=== PATIENT | female | born 1945 | race Caucasian/White ===

== ENCOUNTER → 2019-06-29 15:14 | Outpatient (CLI) | payer OTHER, SELFPAY ==
--- NOTE | ~2019-06-29 | XR_ITS ---
EXAMINATION: XR shoulder RT min 2V DATE: 06/29/2019 15:28 INDICATION: Right shoulder pain. TECHNIQUE: 4 views of right shoulder were obtained. COMPARISON: Right shoulder radiographs 07/11/2014 FINDINGS: Bone alignment is normal. No fracture. There is mild osteoarthritis of glenohumeral joint a nd acromioclavicular joint. IMPRESSION: 1. Mild polyarticular osteoarthritis. Reviewed, dictated and finalized at location A. ICAL SECURITY MANAGER
== END ==
PROVIDERS: PCP Family Medicine; Visit Provider Family Medicine
DX: M19.011 Primary osteoarthritis, right shoulder (principal)
CPT/HCPCS: 73030

== ENCOUNTER 2019-08-17 10:49 | Outpatient (CLI) | payer OTHER, SELFPAY ==
--- NOTE | ~2019-08-17 | MM_ITS ---
EXAMINATION: MM screening leilani BI w orlin HISTORY: Screening mammogram; history of left breast cancer, status post left partial mastectomy, rad iation treatment TECHNIQUE: Craniocaudal and mediolateral oblique 3-D tomosynthesis images were obtained and synthetic 2-D images were generated. CAD analysis was submitted and interpreted. COMPARISON: 01/27/2019 diagnostic left digital mammogram 08/09/2018 right screening and left diagnostic digital mammogram 02/11/2018 bilateral digital screening mammogram BREAST PARENCHYMAL COMPOSITION: There are scattered areas of fibroglandular density. FINDINGS: There is stable postoperative change/scarring in the posterior aspect of the mid inner left breast. There are numerous bilateral benign breast calcifications. There is no evidence of suspiciou s mass, calcification, or new architectural distortion to suggest malignancy in either breast. There has been no suspicious interval change. IMPRESSION: 1. No mammographic evidence of malignancy. 2. Recommend routine screening mammography in one year. BI-RADS Category 2: Benign finding(s). Reviewed, dictated and finalized at location A.
== END 2019-08-17 10:50 | disposition home or self-care (01) ==
PROVIDERS: PCP Family Medicine; Visit Provider Internal Medicine Hematology & Oncology
DX: Z12.31 Encounter for screening mammogram for malignant neoplasm of breast (principal)
CPT/HCPCS: 77063; 77067

== ENCOUNTER 2019-09-01 11:01 | Outpatient (CLI) | payer OTHER, SELFPAY ==
[2019-09-01 11:17] LABS: Basophils Percent Auto 0.6 % (0.2-1.2); Eosinophils Absolute Auto 0.1 K/mm3 (0-0.3); Eosinophils Percent Auto 2.9 % (0-4.4); Hematocrit 38.2 % (37.0-47.0); Hemoglobin 12.6 g/dL (12.0-15.0); Immature Granulocyte Absolute 0.02 K/mm3 (0.00-0.031); Immature Granulocyte Percent A 0.4 % (0-0.5); Lymphocytes Absolute Auto 1.78 K/mm3 (0.9-3.2); Lymphocytes Percent Auto 36.9 % (18.3-44.2); Mean Corpuscular Hemoglobin 31.4 pg (26-34); Mean Corpuscular Volume 95.3 fl (80-100); Mean Platelet Volume 10.1 fl (7.4-10.4); Monocytes Absolute Auto 0.6 K/mm3 (0.1-0.6); Neutrophils Absolute Auto 2.3 K/mm3 (1.3-6.7); Neutrophils Percent Auto 47.2 % (45.5-73.1); Platelet Count Result 174 k/mm3 (150-375); Red Blood Count 4.01 M/mm3 (4.2-5.4); Red Cell Distribution Width 12.2 % (11.5-14.5); White Blood Count 4.8 K/mm3 (4.5-10.0)
[2019-09-01 11:20] LABS: Blood Urea Nitrogen 19 mg/dL (8-26); Carbon Dioxide 25 mmol/L (22-30); Chloride 102 mmol/L (98-109); Estimated Glomerular Filt Rate 48; Glucose 311 mg/dL (70-105); Potassium 3.9 mmol/L (3.5-4.9); Sodium 140 mmol/L (138-146)
== END 2019-09-01 11:02 | disposition home or self-care (01) ==
PROVIDERS: PCP Family Medicine; Visit Provider Internal Medicine Hematology & Oncology
DX: D05.12 Intraductal carcinoma in situ of left breast (principal)
CPT/HCPCS: 36415; 80048; 85025

== ENCOUNTER 2020-01-17 10:09 | Outpatient (CLI) | payer OTHER, SELFPAY ==
--- NOTE | ~2020-01-17 | MR_ITS ---
EXAMINATION: MR shoulder RT wo con DATE: 01/17/2020 11:57 INDICATION: Strain of muscle and tendon of right rotator cuff. TECHNIQUE: Magnetic resonance imaging (MRI) of the right shoulder was performed without intravenous c ontrast. Sequences included axial PD-weighted FS FSE, coronal oblique PD-weighted FS FSE and T2-weigh scotty FS FSE, and sagittal oblique T2-weighted FS FSE and T1-weighted FSE. COMPARISON: Right shoulder radiographs 06/29/2019 FINDINGS: Coracoacromial arch: The acromion undersurface is curved in morphology (type II). There is remodeling of the undersurface of the acromion. There is moderate acromioclavicular joint osteoarthritis. There is mild subacromial/ subdeltoid bursitis. Rotator cuff: There is a full-thickness tear of supraspinatus and anterior infraspinatus tendons measuring 3.5 cm a nterior to posterior by 3.5 cm proximal to distal. There is mild teres minor tendinopathy. There is a full-thickness tear of superior subscapularis tendon. There is volume loss and moderate fatty atroph y of supraspinatus and infraspinatus muscle bellies. There is volume loss and severe fatty atrophy of superior subscapularis muscle belly. Biceps tendon and glenoid labrum: There is a complete tear of proximal biceps tendon. There is extensive tearing of the glenoid labrum. Fluid: There is a moderate-sized glenohumeral joint effusion. Bones/cartilage: There is anterior and superior subluxation of humeral head with respect to acromion. There is partial -thickness cartilage loss of glenoid including deep partial-thickness cartilage loss of the central a rticular surface. There is partial-thickness cartilage loss of humeral head, worst superiorly and med ially. IMPRESSION: 1. Full-thickness rotator cuff tear with cuff arthropathy. 2. Moderate glenohumeral joint chondrosis. 3. Complete tear of proximal biceps tendon. 4. Moderate acromioclavicular joint osteoarthritis. 5. Moderate-sized glenohumeral joint effusion and mild subacromial/subdeltoid bursitis. Reviewed, dictated and finalized at location A. IMPRESSION: 1. Full-thickness rotator cuff tear with cuff arthropathy. 2. Moderate glenohumeral joint chondrosis. 3. Complete tear of proximal biceps tendon. 4. Moderate acromioclavicular joint osteoarthritis. 5. Moderate-sized glenohumeral joint effusion and mild subacromial/subdeltoid b ursitis.
--- NOTE | ~2020-01-17 | DEXA_ITS ---
Bone Density Report Name: Cammy Kilpatrick Age: 74 Sex: Female Ethnicity: White Date of : 1945 Indication: postmenopausal; height loss; cancer; Referring Provider: SRINIVASA TODD Study: Bone densitometry was performed. Exam Date: January 17, 2020 Accession number: [id number] Bone Density: Region BMD T-score Z-score Classification AP Spine (L1-L4) 0.913 -1.2 1.3 Osteopenia Femoral Neck (Left) 0.595 -2.3 -0.1 Osteopenia Total Hip (Left) 0.793 -1.2 0.6 Osteopenia Total Hip Bilateral Avg 0.806 -1.1 0.8 Osteopenia Femoral Neck (Right) 0.642 -1.9 0.3 Osteopenia Total Hip (Right) 0.818 -1.0 0.9 Normal World Health Organization criteria for BMD impression classify patients as: Normal (T-score at or above -1.0), Osteopenia (T-score between -1.0 and -2.5), or Osteoporosis (T-score at or below -2.5). 10-year Fracture Risk(1): Major Osteoporotic Fracture 15% Hip Fracture 4.4% Reported Risk Factors: [place] (), Neck BMD=0.595, BMI=28.9 (1) FRAX(R) Version 3.08. Fracture probability calculated for an untreated patient. Fracture probability may be lower if the patient has received treatment. Clinical Information Provided by Patient: Has used the following medications: Vitamin D Has the following medical conditions: Cancer Patient maximum height was 62 Menopause Age: 43 No regular weight bearing exercise Drinks caffeinated beverages Onset of menses at age 11 Number of children 3 Impression: The patient has low bone mass, based on the Left Femoral Neck T-score. The patient has an estimated ten-year risk of hip fracture of 4.4% and an estimated ten-year risk of major fracture of 15%, based on the WHO FRAX algorithm. Discussion: BONE DENSITY IS LOW AT ONE OR MORE SKELETAL SITES. THE PATIENT'S BMD AND CLINICAL RISK FACTORS CONTRIBUTE TO THIS PATIENT'S INCREASED RISK OF FRACTURE. This patient's lowest T-score is low at one or more skeletal sites. It meets the World Health Organization's (WHO) criteria for ?low bone mass? (T-score between -1.0 and -2.5). The patient's 10-year risk of hip fracture as calculated by FRAX exceeds the threshold where pharmacological therapy is recommended by the National Osteoporosis Foundation (NOF). However, all treatment decisions require clinical judgment and consideration of individual patient factors, including patient preferences, comorbidities, previous drug use, risk factors not captured in the FRAX model (e.g., frailty, falls, vitamin D deficiency, increased bone turnover, interval significant decline in bone density) and possible under or overestimation of fracture risk by FRAX. The patient should follow a healthful lifestyle (good nutrition with adequate calcium and vitamin D, and appropriate weight-bearing exercise). Follow-Up: Consider a repeat BMD and Vertebr
== END 2020-01-17 10:10 | disposition home or self-care (01) ==
LOC: ANHIMG 10:11
PROVIDERS: PCP Family Medicine; Visit Provider Orthopaedic Surgery
DX: S46.011A Strain of muscle(s) and tendon(s) of the rotator cuff of right shoulder, initial encounter (principal); M81.0 Age-related osteoporosis without current pathological fracture; M24.111 Other articular cartilage disorders, right shoulder; S46.211A Strain of muscle, fascia and tendon of other parts of biceps, right arm, initial encounter; M19.011 Primary osteoarthritis, right shoulder; M25.411 Effusion, right shoulder; M75.51 Bursitis of right shoulder; M85.89 Other specified disorders of bone density and structure, multiple sites
CPT/HCPCS: 73221; 77080

== ENCOUNTER 2020-03-01 11:02 | Outpatient (CLI) | payer OTHER, SELFPAY ==
[2020-03-01 11:20] LABS: Basophils Percent Auto 0.4 % (0.2-1.2); Eosinophils Absolute Auto 0.1 K/mm3 (0-0.3); Eosinophils Percent Auto 2.7 % (0-4.4); Hematocrit 39.4 % (37.0-47.0); Hemoglobin 12.9 g/dL (12.0-15.0); Immature Granulocyte Absolute 0.01 K/mm3 (0.00-0.031); Immature Granulocyte Percent A 0.2 % (0-0.5); Lymphocytes Absolute Auto 1.73 K/mm3 (0.9-3.2); Lymphocytes Percent Auto 35.7 % (18.3-44.2); Mean Corpuscular HGB Conc 32.7 g/dl (32-36); Mean Corpuscular Hemoglobin 30.9 pg (26-34); Mean Corpuscular Volume 94.5 fl (80-100); Mean Platelet Volume 9.9 fl (7.4-10.4); Monocytes Absolute Auto 0.5 K/mm3 (0.1-0.6); Monocytes Percent Auto 10.1 % (2.6-8.5); Neutrophils Absolute Auto 2.5 K/mm3 (1.3-6.7); Neutrophils Percent Auto 50.9 % (45.5-73.1); Platelet Count Result 203 k/mm3 (150-375); Red Blood Count 4.17 M/mm3 (4.2-5.4); Red Cell Distribution Width 12.7 % (11.5-14.5); White Blood Count 4.9 K/mm3 (4.5-10.0)
[2020-03-01 11:25] LABS: Blood Urea Nitrogen 17 mg/dL (8-26); Carbon Dioxide 22 mmol/L (22-30); Chloride 104 mmol/L (98-109); Estimated Glomerular Filt Rate 48; Glucose 301 mg/dL (70-105); Sodium 139 mmol/L (138-146)
[2020-03-01 15:01] LABS: Alanine Aminotransferase 29 U/L (4-35); Albumin Level 3.9 g/dL (3.5-5.1); Alkaline Phosphatase 102 U/L (38-126); Anion Gap 11 mmol/L (8-16); Aspartate Amino Transferase 44 U/L (14-36); Bilirubin,Total 0.3 mg/dL (0.2-1.3); Blood Urea Nitrogen 18 mg/dL (7-17); Calcium 9.4 mg/dL (8.4-10.2); Carbon Dioxide 24 mmol/L (22-30); Chloride 102 mmol/L (98-107); Estimated Glomerular Filt Rate 54; Glucose 296 mg/dL (65-105); Potassium 4.3 mmol/L (3.4-5.0); Sodium 137 mmol/L (137-145)
== END 2020-03-01 11:03 | disposition home or self-care (01) ==
LOC: ANHLAB 11:04
PROVIDERS: PCP Family Medicine; Visit Provider Internal Medicine Hematology & Oncology
DX: D05.12 Intraductal carcinoma in situ of left breast (principal)
CPT/HCPCS: 36415; 80048; 80053; 85025

== ENCOUNTER → 2020-03-19 10:06 | Outpatient (CLI) | payer OTHER, SELFPAY ==
--- NOTE | ~2020-03-19 | CT_ITS ---
EXAMINATION: CT abdomen pelvis wo/w con EXAM DATE: 03/19/2020 11:25 INDICATION: Gross Hematuria. Breast cancer. Constipation. TECHNIQUE: Spiral CT of the abdomen and pelvis was performed without contrast. The patient was then injected with small bolus intravenous Omnipaque 350, followed by delay of approximately 10 minutes to allow collecting system to opacify. A post contrast scan abdomen and pelvis was performed during inj ection of remaining contrast. A total of 130 cc intravenous contrast was administered. The dose-steph th product (DLP) for this examination was 1280.03 mGy-cm. The exposure was tailored according to pat ient size (auto mA exposure control), and iterative reconstruction (ASIR) was used as additional dose reduction technique. There is no prior study for comparison. FINDINGS: There is no hydronephrosis or nephrolithiasis. Mild bilateral renal atrophy. The kidneys en beckie symmetrically. There are no suspicious renal lesions. The calyces and opacified portions of u reters are unremarkable, without filling defects or focal suspicious strictures. The bladder is unre markable. The uterus is unremarkable. There is hepatic steatosis. There is hyperplasia of the left adrenal gland. Right adrenal gland, sple en, pancreas are unremarkable. Gallbladder is unremarkable. No biliary obstruction. There is no re troperitoneal or pelvic lymphadenopathy. There is mild scattered arteriosclerotic disease. Small um bilical fat-containing hernia. The appendix is normal. The stomach and small bowel are unremarkable. There is moderate amount of c olonic stool. There is mild scattered colonic diverticulosis. There is no adjacent inflammatory castillo ge to suggest diverticulitis. No free intraperitoneal gas. The heart is normal in size. There are no pericardial or pleural effusions. The lung bases are unremarkable. There are no osteoblastic or osteolytic lesions identified. IMPRESSION: 1. No suspicious genitourinary findings. 2. Hepatic steatosis. 3. Mild sigmoid diverticulosis. 4. Left adrenal hyperplasia. Reviewed, dictated and finalized at location B. CLEANER
--- NOTE | ~2020-03-19 | XR_ITS ---
EXAMINATION: XR abdomen/kub 1V EXAM DATE: 03/19/2020 10:30 INDICATION: Gross Hematuria . TECHNIQUE: Frontal projection of the upper abdomen, frontal projection lower abdomen/pelvis for inter pretation. Correlation is made to CT same date. FINDINGS: There is moderate amount of colonic stool and gas. No small bowel dilation, nonobstructiv e bowel gas pattern. There are no suspicious calcifications identified. There is no organomegaly suspected. There are bony degenerative changes. Lung bases unremarkable. IMPRESSION: Unremarkable abdomen x-ray exam. Reviewed, dictated and finalized at location B. OPERATIONS ADMINISTRATOR
[2020-03-19 10:43] LABS: Estimated Glomerular Filt Rate 44
== END ==
PROVIDERS: PCP Family Medicine; Visit Provider Urology
DX: R31.0 Gross hematuria (principal); K76.0 Fatty (change of) liver, not elsewhere classified; K57.30 Diverticulosis of large intestine without perforation or abscess without bleeding; E27.8 Other specified disorders of adrenal gland
CPT/HCPCS: 74018; 74178; Q9967

== ENCOUNTER 2020-08-20 09:52 | Outpatient (CLI) | payer OTHER, SELFPAY ==
--- NOTE | ~2020-08-20 | MM_ITS ---
EXAMINATION: MM screening leilani BI w orlin HISTORY: Screening mammogram TECHNIQUE: Craniocaudal and mediolateral oblique 3-D tomosynthesis images were obtained and synthetic 2-D images were generated. CAD analysis was submitted and interpreted. COMPARISON: 08/17/2019 bilateral digital screening mammogram 01/27/2019 diagnostic left digital mammogram 08/12/2018 right screening and left diagnostic digital mammogram examination BREAST PARENCHYMAL COMPOSITION: There are scattered areas of fibroglandular density. FINDINGS: Status post left partial mastectomy. Surgical clips and biopsy marker are again noted in th e posterior mid inner left breast. Numerous scattered benign calcifications are noted bilaterally. There is no evidence of suspicious ma ss, calcification, or architectural distortion to suggest malignancy in either breast. There has been no suspicious interval change. IMPRESSION: 1. No mammographic evidence of malignancy. 2. Recommend routine screening mammography in one year. BI-RADS Category 2: Benign finding(s). Reviewed, dictated and finalized at location A.
[2020-08-20 10:45] LABS: Basophils Percent Auto 0.4 % (0.2-1.2); Eosinophils Absolute Auto 0.2 K/mm3 (0-0.3); Eosinophils Percent Auto 2.1 % (0-4.4); Hematocrit 41.9 % (37.0-47.0); Hemoglobin 13.2 g/dL (12.0-15.0); Immature Granulocyte Absolute 0.02 K/mm3 (0.00-0.031); Immature Granulocyte Percent A 0.3 % (0-0.5); Lymphocytes Absolute Auto 1.83 K/mm3 (0.9-3.2); Mean Corpuscular HGB Conc 31.5 g/dl (32-36); Mean Corpuscular Hemoglobin 29.2 pg (26-34); Mean Corpuscular Volume 92.7 fl (80-100); Mean Platelet Volume 9.8 fl (7.4-10.4); Monocytes Absolute Auto 0.6 K/mm3 (0.1-0.6); Monocytes Percent Auto 7.9 % (2.6-8.5); Neutrophils Percent Auto 65.3 % (45.5-73.1); Platelet Count Result 218 k/mm3 (150-375); Red Blood Count 4.52 M/mm3 (4.2-5.4); Red Cell Distribution Width 13.8 % (11.5-14.5); White Blood Count 7.6 K/mm3 (4.5-10.0)
[2020-08-20 13:19] LABS: Alanine Aminotransferase 22 U/L (4-35); Alkaline Phosphatase 87 U/L (38-126); Anion Gap 11 mmol/L (8-16); Aspartate Amino Transferase 31 U/L (14-36); Bilirubin,Total 0.3 mg/dL (0.2-1.3); Blood Urea Nitrogen 19 mg/dL (7-17); Calcium 9.8 mg/dL (8.4-10.2); Carbon Dioxide 25 mmol/L (22-30); Chloride 103 mmol/L (98-107); Estimated Glomerular Filt Rate > 60; Glucose 220 mg/dL (65-105); Potassium 4.5 mmol/L (3.4-5.0); Sodium 139 mmol/L (137-145)
[2020-08-24 08:52] LABS: CA 15-3 21 U/mL (<32)
== END 2020-08-20 09:53 | disposition home or self-care (01) ==
PROVIDERS: PCP Family Medicine; Visit Provider Internal Medicine Hematology & Oncology
DX: Z12.31 Encounter for screening mammogram for malignant neoplasm of breast (principal); C50.912 Malignant neoplasm of unspecified site of left female breast
CPT/HCPCS: 36415; 77063; 77067; 80053; 85025; 86300

== ENCOUNTER 2020-12-19 14:30 | Outpatient (RCR) | payer OTHER, SELFPAY ==
[2020-11-13 12:48] VITALS: BMI 27.6
[2020-11-13 12:58] VITALS: BMI 27.6
== END 2021-01-28 11:46 | disposition home or self-care (01) ==
LOC: ANHDMC 14:30
PROVIDERS: PCP Family Medicine; Visit Provider Physician Assistant
DX: E11.65 Type 2 diabetes mellitus with hyperglycemia (principal); Z71.89 Other specified counseling; Z71.3 Dietary counseling and surveillance
CPT/HCPCS: 97802; G0108; G0109

== ENCOUNTER 2021-02-26 10:09 | Outpatient (RCR) | payer OTHER, SELFPAY | END 2021-02-26 12:16 | disposition home or self-care (01) | LOC: ANHDMC 10:09 | PROVIDERS: PCP Family Medicine; Visit Provider Physician Assistant | DX: E11.65 Type 2 diabetes mellitus with hyperglycemia (principal); Z71.89 Other specified counseling | CPT/HCPCS: G0108 ==

== ENCOUNTER 2021-02-28 11:09 | Outpatient (CLI) | payer OTHER, SELFPAY ==
[2021-02-28 11:25] LABS: Basophils Percent Auto 0.4 % (0.2-1.2); Eosinophils Absolute Auto 0.2 K/mm3 (0-0.3); Hematocrit 42.5 % (37.0-47.0); Hemoglobin 13.7 g/dL (12.0-15.0); Immature Granulocyte Absolute 0.01 K/mm3 (0.00-0.031); Immature Granulocyte Percent A 0.2 % (0-0.5); Lymphocytes Absolute Auto 1.86 K/mm3 (0.9-3.2); Lymphocytes Percent Auto 33.8 % (18.3-44.2); Mean Corpuscular HGB Conc 32.2 g/dl (32-36); Mean Corpuscular Hemoglobin 30.4 pg (26-34); Mean Corpuscular Volume 94.4 fl (80-100); Mean Platelet Volume 9.4 fl (7.4-10.4); Monocytes Absolute Auto 0.5 K/mm3 (0.1-0.6); Monocytes Percent Auto 9.5 % (2.6-8.5); Neutrophils Absolute Auto 2.9 K/mm3 (1.3-6.7); Neutrophils Percent Auto 52.1 % (45.5-73.1); Platelet Count Result 205 k/mm3 (150-375); Red Cell Distribution Width 14.3 % (11.5-14.5); White Blood Count 5.5 K/mm3 (4.5-10.0)
[2021-02-28 11:29] LABS: Blood Urea Nitrogen 21 mg/dL (8-26); Carbon Dioxide 24 mmol/L (22-30); Chloride 103 mmol/L (98-109); Estimated Glomerular Filt Rate 54; Glucose 174 mg/dL (70-105); Sodium 142 mmol/L (138-146)
[2021-02-28 12:28] LABS: Alanine Aminotransferase 25 U/L (4-35); Alkaline Phosphatase 78 U/L (38-126); Anion Gap 12 mmol/L (8-16); Aspartate Amino Transferase 34 U/L (14-36); Bilirubin,Total 0.4 mg/dL (0.2-1.3); Blood Urea Nitrogen 21 mg/dL (7-17); Calcium 9.5 mg/dL (8.4-10.2); Carbon Dioxide 24 mmol/L (22-30); Chloride 105 mmol/L (98-107); Estimated Glomerular Filt Rate 54; Glucose 166 mg/dL (65-110); Potassium 4.1 mmol/L (3.4-5.0); Sodium 141 mmol/L (137-145)
[2021-03-03 07:24] LABS: CA 15-3 19 U/mL (<32)
== END 2021-02-28 11:10 | disposition home or self-care (01) ==
PROVIDERS: PCP Family Medicine; Visit Provider Internal Medicine Hematology & Oncology
DX: C50.912 Malignant neoplasm of unspecified site of left female breast (principal)
CPT/HCPCS: 36415; 80048; 80053; 85025; 86300

== ENCOUNTER 2021-08-22 14:35 | Outpatient (CLI) | payer OTHER, SELFPAY ==
--- NOTE | ~2021-08-22 | MM_ITS ---
EXAMINATION: MM screening leilani BI w orlin HISTORY: Screening TECHNIQUE: Craniocaudal and mediolateral oblique 3-D tomosynthesis images were obtained and synthetic 2-D images were generated. CAD analysis was submitted and interpreted. COMPARISON: Comparison to multiple prior studies sequentially, with oldest reviewed study dated 01/25. BREAST PARENCHYMAL COMPOSITION: There are scattered areas of fibroglandular density. FINDINGS: There is a developing asymmetry in the lower outer quadrant of the right breast posteriorly . There are developing indeterminate calcifications in the lower inner quadrant of the left breast po steriorly. IMPRESSION: 1. Developing right breast asymmetry. Developing indeterminate left breast calcifications. 2. Additional mammographic views and possible breast ultrasound are recommended. BI-RADS Category 0: Incomplete: Needs additional imaging evaluation. Reviewed, dictated and finalized at location A. IMPRESSION: 1. Developing right breast asymmetry. Developing indeterminate left breast calc ifications. 2. Additional mammographic views and possible breast ultrasound are recommended . BI-RADS Category 0: Incomplete: Needs additional imaging evaluation.
== END 2021-08-22 14:36 | disposition home or self-care (01) ==
PROVIDERS: PCP Family Medicine; Visit Provider Internal Medicine Hematology & Oncology
DX: Z12.31 Encounter for screening mammogram for malignant neoplasm of breast (principal); R92.8 Other abnormal and inconclusive findings on diagnostic imaging of breast
CPT/HCPCS: 36415; 77063; 77067; 80053; 85025; 86300

== ENCOUNTER 2021-08-22 15:14 | Outpatient (CLI) | payer OTHER, SELFPAY ==
[2021-08-22 15:29] LABS: Basophils Percent Auto 0.3 % (0.2-1.2); Eosinophils Absolute Auto 0.3 K/mm3 (0-0.3); Hematocrit 43.8 % (37.0-47.0); Hemoglobin 13.3 g/dL (12.0-15.0); Immature Granulocyte Absolute 0.02 K/mm3 (0.00-0.031); Immature Granulocyte Percent A 0.3 % (0-0.5); Lymphocytes Absolute Auto 2.34 K/mm3 (0.9-3.2); Lymphocytes Percent Auto 38.6 % (18.3-44.2); Mean Corpuscular HGB Conc 30.4 g/dl (32-36); Mean Corpuscular Hemoglobin 29.9 pg (26-34); Mean Corpuscular Volume 98.4 fl (80-100); Mean Platelet Volume 9.4 fl (7.4-10.4); Monocytes Absolute Auto 0.6 K/mm3 (0.1-0.6); Monocytes Percent Auto 10.2 % (2.6-8.5); Neutrophils Absolute Auto 2.8 K/mm3 (1.3-6.7); Neutrophils Percent Auto 45.6 % (45.5-73.1); Platelet Count Result 218 k/mm3 (150-375); Red Blood Count 4.45 M/mm3 (4.2-5.4); Red Cell Distribution Width 12.6 % (11.5-14.5); White Blood Count 6.1 K/mm3 (4.5-10.0)
[2021-08-22 16:01] LABS: Alanine Aminotransferase 24 U/L (4-35); Albumin Level 4.3 g/dL (3.5-5.1); Alkaline Phosphatase 72 U/L (38-126); Anion Gap 9 mmol/L (8-16); Aspartate Amino Transferase 41 U/L (14-36); Bilirubin,Total 0.2 mg/dL (0.2-1.3); Blood Urea Nitrogen 20 mg/dL (7-17); Calcium 9.7 mg/dL (8.4-10.2); Carbon Dioxide 27 mmol/L (22-30); Chloride 103 mmol/L (98-107); Estimated Glomerular Filt Rate 54; Glucose 125 mg/dL (65-110); Potassium 4.2 mmol/L (3.4-5.0); Sodium 139 mmol/L (137-145)
[2021-08-25 05:26] LABS: CA 15-3 19 U/mL (<32)
== END 2021-08-22 15:15 | disposition home or self-care (01) ==
LOC: ANHLAB 15:16
PROVIDERS: PCP Family Medicine; Visit Provider Internal Medicine Hematology & Oncology
DX: C50.912 Malignant neoplasm of unspecified site of left female breast (principal)
CPT/HCPCS: 36415; 80053; 85025; 86300

== ENCOUNTER 2021-09-10 11:15 | Outpatient (CLI) | payer OTHER, SELFPAY ==
--- NOTE | ~2021-09-10 | MM_ITS ---
EXAMINATION: MM diagnostic leilani BI w orlin HISTORY: Focal asymmetry of the right breast and indeterminate left breast calcifications on screenin g mammogram TECHNIQUE: Additional views of the breasts were performed. CAD analysis was submitted and interpreted . COMPARISON: Comparison is made to prior mammograms dating back to 04/14/2017 FINDINGS: With magnification views, the indeterminate left breast calcifications appear to be stable when compared to prior mammograms. There is also a stable focal asymmetry in the posterior third of t he lower, slightly outer right breast. There has been no suspicious interval change. IMPRESSION: 1. No mammographic evidence of malignancy. 2. Recommend routine screening mammography in one year. BI-RADS Category 2: Benign finding(s). Reviewed, dictated and finalized at location A.
== END 2021-09-10 11:16 | disposition home or self-care (01) ==
PROVIDERS: PCP Family Medicine; Visit Provider Internal Medicine Hematology & Oncology
DX: R92.8 Other abnormal and inconclusive findings on diagnostic imaging of breast (principal)
CPT/HCPCS: 77062; 77066; G0279

== ENCOUNTER 2021-10-02 20:09 | Emergency (ER) | payer OTHER, SELFPAY ==
--- NOTE | ~2021-10-02 | XR_ITS ---
EXAMINATION: XR chest 2V Exam Date/Time: 10/02/2021 21:00 CDT HISTORY: WEAKNESS,COUGH,FATIGUE,DIABETES-NOT TAKING MEDS,HTN Comparison: 08/30/2018. RESULT: Lines, tubes, and devices: None. Lungs and pleura: Clear. Cardiomediastinal silhouette: Stable cardiomediastinal silhouette. Other: No acute osseous or upper abdominal finding. IMPRESSION: No acute cardiopulmonary process. Reviewed, dictated and finalized at location K.
--- NOTE | 2021-10-02 20:13 | ECG_ITS ---
Measurements Intervals Newborn Rate: 110 P: 53 DE: 185 QRS: -5 QRSD: 94 T: 67 QT: 342 QTc: 464 Interpretive Statements SINUS TACHYCARDIA POSSIBLE LEFT ATRIAL ENLARGEMENT [-0.1mV P-WAVE IN V1/V2] ABNORMAL RHYTHM ECG NO PREVIOUS ECG AVAILABLE FOR COMPARISON Electronically Signed On 10-02-2021 22:22:08 CDT by Marcela Buenrostro M.D.
[2021-10-02 20:16] VITALS: BP 158/57; PULSE 109; RESP 25; TEMP 36.8; O2SAT 98
[2021-10-02 20:24] LABS: Glucose Point of Care > 500 mg/dl (65-105)
--- NOTE | 2021-10-02 20:41 | ED.WEAKNESS ---
HPI - Weakness General Chief complaint: Weakness Stated complaint: fatigue Time Seen by Provider: 10/02/21 20:16 History of Present Illness HPI Narrative: Per , patient had stopped taking all of her medications about 5 days ago, and has seemed tired and withdrawn. Patient states that she feels terrible, mostly because she has pain in her rotator cuff, and finally after some prompting patient states that she has not felt like taking her medicine because she is upset that they moved 5 days ago. Her states that they had to downsize and had to get rid of a lot of stuff and it made her very sad. Related Data Home Medications Medication Instructions Recorded Confirmed multivitamin 1 tablet PO DAILY 05/06/19 08/10/21 tamoxifen 20 mg tablet 20 mg PO DAILY 05/06/19 08/10/21 acetaminophen 500 mg tablet 500 mg PO Q6H PRN Pain 05/31/20 08/10/21 (Tylenol Extra Strength) ascorbate calcium (vitamin C) 500 500 mg PO DAILY 05/31/20 08/10/21 mg tablet cholecalciferol (vitamin D3) 125 125 mcg PO DAILY 05/31/20 08/10/21 mcg (5,000 unit) capsule glucosamine-chondroitin 250 mg-200 2 tablet PO TID 05/31/20 08/10/21 mg tablet (Osteo Bi-Flex) magnesium oxide 500 mg tablet 500 mg PO DAILY 05/31/20 08/10/21 turmeric root extract 500 mg 500 mg PO DAILY 05/31/20 08/10/21 capsule loratadine 10 mg tablet (Claritin) 10 mg PO DAILY 02/06/21 08/10/21 Allergies Allergy/AdvReac Type Severity Reaction Status Date / Time No Known Allergies Allergy Verified 10/02/21 20:24 Review of Systems Review of Systems: CONST: No fever. HEENT: No sore throat C/V: No chest pain RESP: No cough GI: No abdominal pain : No dysuria but per has been going more frequently M/S: Right shoulder pain SKIN: No rash. NEURO: [No headache or focal numbness or weakness] PSYCH: Feeling depressed PMFSH Past Medical History Medical History Adrenal hyperplasia Arthritis Chronic kidney disease due to type 2 diabetes mellitus Constipation Diabetes Diverticulosis Fatty liver High cholesterol Hypertension IBS (irritable bowel syndrome) Osteopenia after menopause Osteoporosis Rotator cuff arthropathy of right shoulder Rotator cuff tear, right Type 2 diabetes mellitus with hyperglycemia Urinary frequency Weight gain Surgical History Surgical History History of breast surgery Family History Family History Other Diabetes mellitus Social History Social History Social History: Smoking status: Never smoker Second hand tobacco smoke exposure: No Alcohol intake: never Alcohol use details: Occasionally Substance use: never Substance use type: does not use Gender identity (if verbalized by the patient): Female Sexual Orientation (if Verbalized by the Patient): Straight or Heterosexual Spiritual care concerns: No Exam Narrative: EXAMINATION OF ORGAN SYSTEMS/BODY AREAS: Constitutional: Vital signs per nursing GENERAL:[No acute distress, non-toxic appearing.] HEAD: Normal with no signs of head trauma. EYES: EOMI, conjunctiva normal ENT: Hearing grossly intact LUNGS: Nonlabored breathing. HEART: [Regular rate and rhythm] ABD: [Soft], [nontender to palpation] EXT: Tenderness to the right shoulder SKIN: [No rashes or lesions.] NEURO: [Alert and oriented x 3. No gross focal sensory or strength deficits.] PSYCH: Flat affect Course Vital Signs Vital signs: Vital Signs Temperature 98.2 F 10/02/21 20:16 Pulse Rate 109 H 10/02/21 20:16 Respiratory Rate 25 H 10/02/21 20:16 Blood Pressure 158/57 H 10/02/21 20:16 Pulse Oximetry 98 10/02/21 20:16 Oxygen Delivery Room Air 10/02/21 20:16 Temperature 98.2 F 10/02/21 20:16 Pulse Rate 105 H 10/02/21 20:46 Respiratory Rate 25 H
[2021-10-02 20:46] VITALS: BP 153/69; PULSE 105; RESP 25; O2SAT 95
[2021-10-02] MEDS: LACTATED RINGERS 1,000 ML 999 ML IV CONT ×2 (20:48→23:05)
[2021-10-02 20:59] LABS: Basophils Percent Auto 0.3 % (0.2-1.2); Eosinophils Percent Auto 0.1 % (0-4.4); Hematocrit 38.6 % (37.0-47.0); Hemoglobin 12.5 g/dL (12.0-15.0); Immature Granulocyte Absolute 0.05 K/mm3 (0.00-0.031); Immature Granulocyte Percent A 0.7 % (0-0.5); Lymphocytes Absolute Auto 0.85 K/mm3 (0.9-3.2); Lymphocytes Percent Auto 11.3 % (18.3-44.2); Mean Corpuscular HGB Conc 32.4 g/dl (32-36); Mean Corpuscular Volume 92.6 fl (80-100); Mean Platelet Volume 10.1 fl (7.4-10.4); Monocytes Absolute Auto 0.6 K/mm3 (0.1-0.6); Monocytes Percent Auto 8.2 % (2.6-8.5); Neutrophils Percent Auto 79.4 % (45.5-73.1); Platelet Count Result 227 k/mm3 (150-375); Red Blood Count 4.17 M/mm3 (4.2-5.4); Red Cell Distribution Width 12.9 % (11.5-14.5); White Blood Count 7.5 K/mm3 (4.5-10.0)
[2021-10-02 21:14] LABS: Alanine Aminotransferase 28 U/L (6-35); Albumin Level 3.8 g/dL (3.5-5.1); Alkaline Phosphatase 116 U/L (38-126); Anion Gap 10 mmol/L (8-16); Aspartate Amino Transferase 27 U/L (14-36); Bilirubin,Total 0.3 mg/dL (0.2-1.3); Blood Urea Nitrogen 15 mg/dL (7-17); Calcium 8.9 mg/dL (8.4-10.2); Carbon Dioxide 24 mmol/L (22-30); Chloride 93 mmol/L (98-107); Estimated Glomerular Filt Rate > 60; Sodium 127 mmol/L (137-145)
[2021-10-02 21:26] LABS: Glucose 653 mg/dL (65-110)
[2021-10-02 21:35] LABS: Influenza A QL RT-PCR Negative (Negative); Influenza B QL RT-PCR Negative (Negative); SARS-CoV-2 RNA PCR Negative
[2021-10-02 21:52] LABS: Appearance Urine Clear (Clear); Bilirubin Urine Negative (Negative); Color Urine Yellow (Yellow); Glucose Urine UA 3+ mg/dL (Negative); Ketones Urine Trace mg/dL (Negative); Leukocyte Esterase Ur Negative LEU/UL (Negative); Nitrate Urine Negative (Negative); Protein Urine Negative (Negative); Specific Grav Ur <= 1.005 (1.001-1.035); Urobilinogen Urine 0.2 mg/dL (<2.0); pH Urine 5.5 (5.0-9.0)
[2021-10-02 21:59] LABS: RBC Urine 0-2 /hpf (0-2); Squamous Epithelial Cell Urine Rare /hpf (Few); WBC Urine 0-3 /hpf
[2021-10-02 22:01] LABS: Add Urine Microscopic? YES; Blood Urine Trace (Negative)
[2021-10-02 22:37] LABS: Glucose Point of Care > 500 mg/dl (65-105)
--- NOTE | 2021-10-02 22:41 | PC.NURSE ---
Discussed w/ EDP Dr. Del Cid who believes [facility] should be contacted to evaluate this pt. Pt has been depressed since moving and having to throw away a lot of her possessions and this has caused depression and the pt has not been taking her medications because of it.
--- NOTE | 2021-10-02 22:42 | PC.NURSE ---
Pt has been medically cleared by Dr. Del Cid at this time.
[2021-10-02] MEDS: INSULIN ASPART (*BKC) 100 UNITS/ML 8 UNITS SUB-Q (23:02)
[2021-10-03 01:20] LABS: Glucose Point of Care 297 mg/dl (65-105)
[2021-10-03 02:00] VITALS: BP 143/65; PULSE 117; RESP 16; O2SAT 98
== END 2021-10-03 01:57 | disposition home or self-care (01) ==
PROVIDERS: Emergency Provider Emergency Medicine; PCP Family Medicine
DX: F32.A Depression, unspecified (principal); E11.65 Type 2 diabetes mellitus with hyperglycemia; Z20.822 Contact with and (suspected) exposure to COVID-19; E11.22 Type 2 diabetes mellitus with diabetic chronic kidney disease; I12.9 Hypertensive chronic kidney disease with stage 1 through stage 4 chronic kidney disease, or unspecified chronic kidney disease; N18.9 Chronic kidney disease, unspecified; E78.00 Pure hypercholesterolemia, unspecified; K58.9 Irritable bowel syndrome, unspecified; M85.80 Other specified disorders of bone density and structure, unspecified site; M81.0 Age-related osteoporosis without current pathological fracture; M75.101 Unspecified rotator cuff tear or rupture of right shoulder, not specified as traumatic; E27.8 Other specified disorders of adrenal gland; Z91.128 Patient's intentional underdosing of medication regimen for other reason; T50.916A Underdosing of multiple unspecified drugs, medicaments and biological substances, initial encounter; Z79.899 Other long term (current) drug therapy; Z79.4 Long term (current) use of insulin; Z79.84 Long term (current) use of oral hypoglycemic drugs
CPT/HCPCS: 36415; 71046; 80053; 81001; 82948; 85025; 87502; 93005; 96360; 96361; 99284; C9803; J1815; J7120; U0003; U0005

== ENCOUNTER 2021-11-19 13:36 | Outpatient (CLI) | payer OTHER, SELFPAY ==
[2021-11-19 13:56] LABS: Basophils Percent Auto 0.3 % (0.2-1.2); Eosinophils Absolute Auto 0.6 K/mm3 (0-0.3); Eosinophils Percent Auto 8.9 % (0-4.4); Hematocrit 38.3 % (37.0-47.0); Hemoglobin 11.7 g/dL (12.0-15.0); Immature Granulocyte Absolute 0.02 K/mm3 (0.00-0.031); Immature Granulocyte Percent A 0.3 % (0-0.5); Lymphocytes Absolute Auto 2.14 K/mm3 (0.9-3.2); Lymphocytes Percent Auto 31.2 % (18.3-44.2); Mean Corpuscular HGB Conc 30.5 g/dl (32-36); Mean Corpuscular Hemoglobin 27.9 pg (26-34); Mean Corpuscular Volume 91.2 fl (80-100); Mean Platelet Volume 9.3 fl (7.4-10.4); Monocytes Absolute Auto 0.7 K/mm3 (0.1-0.6); Monocytes Percent Auto 9.9 % (2.6-8.5); Neutrophils Absolute Auto 3.4 K/mm3 (1.3-6.7); Neutrophils Percent Auto 49.4 % (45.5-73.1); Platelet Count Result 226 k/mm3 (150-375); Red Cell Distribution Width 13.5 % (11.5-14.5); White Blood Count 6.9 K/mm3 (4.5-10.0)
[2021-11-19 14:37] LABS: Alanine Aminotransferase 19 U/L (6-35); Alkaline Phosphatase 80 U/L (38-126); Anion Gap 8 mmol/L (8-16); Aspartate Amino Transferase 36 U/L (14-36); Bilirubin,Total 0.3 mg/dL (0.2-1.3); Blood Urea Nitrogen 19 mg/dL (7-17); Calcium 9.1 mg/dL (8.4-10.2); Carbon Dioxide 29 mmol/L (22-30); Chloride 102 mmol/L (98-107); Estimated Glomerular Filt Rate 40; Glucose 116 mg/dL (65-110); Potassium 4.5 mmol/L (3.4-5.0); Sodium 139 mmol/L (137-145)
[2021-11-23 06:50] LABS: CA 15-3 19 U/mL (<32)
== END 2021-11-19 13:37 | disposition home or self-care (01) ==
LOC: ANHLAB 13:38
PROVIDERS: PCP Family Medicine; Visit Provider Internal Medicine Hematology & Oncology
DX: C50.912 Malignant neoplasm of unspecified site of left female breast (principal)
CPT/HCPCS: 36415; 80053; 85025; 86300

== ENCOUNTER 2022-02-28 13:44 | Outpatient (CLI) | payer OTHER, SELFPAY ==
--- NOTE | ~2022-02-28 | XR_ITS ---
EXAMINATION: XR chest 2V DATE: 02/28/2022 14:13 INDICATION: Decreased lung sounds. TECHNIQUE: Frontal and lateral views of the chest were obtained. COMPARISON: Chest 2 views 10/02/2021 FINDINGS: There is mild scarring at the lung apices. No pleural effusion or pneumothorax. The heart s ize is normal. IMPRESSION: 1. Mild scarring at the lung apices. Reviewed, dictated and finalized at location A.
== END 2022-02-28 13:45 | disposition home or self-care (01) ==
LOC: ANHIMG 13:53
PROVIDERS: PCP Family Medicine; Visit Provider Physician Assistant
DX: R06.02 Shortness of breath (principal); R91.8 Other nonspecific abnormal finding of lung field
CPT/HCPCS: 71046

== ENCOUNTER 2022-05-25 12:42 | Emergency (ER) | payer OTHER, SELFPAY ==
--- NOTE | ~2022-05-25 | XR_ITS ---
XR hip LT 2V w AP pelvis 05/25/2022 13:46 INDICATION: Pain with ambulation. PROCEDURE: AP pelvis and 2 views left hip COMPARISON: No prior studies for comparison. FINDINGS: Fracture, dislocation or subluxation is not identified. There is moderate osteoarthritis of the hips. There are degenerative changes of the pubic symphysis. Pelvic rings are intact. The soft t issues appear within normal limits. No foreign bodies are identified. IMPRESSION: 1: NO ACUTE BONE OR JOINT ABNORMALITY IDENTIFIED. Reviewed, dictated and finalized at location A. BUYER TOBACCO
--- NOTE | ~2022-05-25 | CT_ITS ---
EXAMINATION: CT pelvis wo con DATE: 05/25/2022 14:18 INDICATION: Left hip pain TECHNIQUE: Computed tomography (CT) of the pelvis was performed without intravenous contrast. The dos e-length product was 393.87 mGy-cm. Automated exposure control and iterative reconstruction technique were employed. COMPARISON: Left hip series dated 05/25/[address] dated 03/19/2020 FINDINGS: There is a chronic fracture of the left ilium with evidence for callus formation. There are significant symmetric degenerative changes of the sacroiliac joints. Moderate lower lumbar spondylos is. There is symmetric moderate osteoarthritis of the hips. No acute fracture of the hips. There are degenerative changes of the pubic symphysis. IMPRESSION: 1. No acute fracture. 2: Chronic healed/healing fracture of the left ilium. Reviewed, dictated and finalized at location A. RIOR DESIGN ASSISTANT
[2022-05-25 12:43] VITALS: BP 138/68; PULSE 90; RESP 15; TEMP 36.5; O2SAT 99
--- NOTE | 2022-05-25 14:04 | ED.LOWEXIN ---
HPI - Extremity Injury (Lower) General Chief Complaint: Extremity Injury, Lower Stated Complaint: left hip pain Time Seen by Provider: 05/25/22 13:09 Source: RN notes reviewed History of Present Illness HPI Narrative: Patient presents emergency room from home for left hip pain. Patient states pain began last night approximately 5 PM she states that she was in the basement leaning on the rail going up her steps when she been talking to her she states that she went then went to take the neck step and felt a pop in her left hip and heard a crack and has had pain since that time she denies falling to the ground states that there is tenderness in that region and states it is worse to ambulate she denies any numbness or weakness of the extremity denies any knee or ankle pain she did not take anything for the pain Related Data Home Medications Medication Instructions Recorded Confirmed multivitamin 1 tablet PO DAILY 05/06/19 04/07/22 tamoxifen 20 mg tablet 20 mg PO DAILY 05/06/19 04/07/22 acetaminophen 500 mg tablet 500 mg PO Q6H PRN Pain 05/31/20 04/07/22 (Tylenol Extra Strength) ascorbate calcium (vitamin C) 500 500 mg PO DAILY 05/31/20 04/07/22 mg tablet cholecalciferol (vitamin D3) 125 125 mcg PO DAILY 05/31/20 04/07/22 mcg (5,000 unit) capsule glucosamine-chondroitin 250 mg-200 2 tablet PO TID 05/31/20 04/07/22 mg tablet (Osteo Bi-Flex) magnesium oxide 500 mg tablet 500 mg PO DAILY 05/31/20 04/07/22 turmeric root extract 500 mg 500 mg PO DAILY 05/31/20 04/07/22 capsule loratadine 10 mg tablet (Claritin) 10 mg PO DAILY 02/06/21 04/07/22 budesonide 160 mcg-glycopyr 9 2 inh inhalation BID 02/28/22 04/07/22 mcg-formot 4.8 mcg/actuation HFA inhaler (Breztri Aerosphere) Allergies Allergy/AdvReac Type Severity Reaction Status Date / Time No Known Allergies Allergy Verified 05/25/22 13:32 Review of Systems Review of Systems: Gen.: Denies fevers or chills ENT: Denies congestion Respiratory: Denies shortness of breath CV: Denies chest pain GI: Denies abdominal pain nausea, emesis denies prominence Musculoskeleta see HPI Neuro: Denies numbness, tingling, weakness or focal weakness Skin: Denies rash Except as documented, all other systems reviewed and negative [facility] Past Medical History Medical History Adrenal hyperplasia Arthritis Chronic kidney disease due to type 2 diabetes mellitus Constipation Diabetes Diverticulosis Fatty liver High cholesterol Hypertension IBS (irritable bowel syndrome) Osteopenia after menopause Osteoporosis Rotator cuff arthropathy of right shoulder Rotator cuff tear, right Type 2 diabetes mellitus with hyperglycemia Urinary frequency Weight gain Surgical History Surgical History History of breast surgery Family History Family History Other Diabetes mellitus Social History Social History Social History: Smoking status: Never smoker Second hand tobacco smoke exposure: No Alcohol intake: never Alcohol use details: Occasionally Substance use: never Substance use type: does not use Living arrangements: with family Occupation/Education: retired Gender identity (if verbalized by the patient): Female Sexual Orientation (if Verbalized by the Patient): Straight or Heterosexual Spiritual care concerns: No Exam Narrative: APPEARANCE: No acute distress, nontoxic, resting in bed EYES: EOMI HEENT: Normocephalic, atraumatic, OMM RESPIRATORY: No respiratory distress. ABDOMINAL: Soft, nontender, nondistended, no rebound or guarding Back: No midline thoracic or lumbar tenderness palpation MUSCULOSKELETAl: Moves all extremities. No clubbing, cyanosis or edema. Tender palpation left lateral and posterior hip no swel
[2022-05-25] MEDS: ACETAMINOPHEN 500 MG TABLET 1000 MG PO (14:20)
[2022-05-25 15:25] VITALS: PULSE 85; RESP 16; O2SAT 99
== END 2022-05-25 15:30 | disposition home or self-care (01) ==
PROVIDERS: Emergency Provider Emergency Medicine; PCP Family Medicine
DX: M84.454A Pathological fracture, pelvis, initial encounter for fracture (principal); E11.22 Type 2 diabetes mellitus with diabetic chronic kidney disease; I12.9 Hypertensive chronic kidney disease with stage 1 through stage 4 chronic kidney disease, or unspecified chronic kidney disease; N18.9 Chronic kidney disease, unspecified; E78.00 Pure hypercholesterolemia, unspecified; K58.9 Irritable bowel syndrome, unspecified; M85.80 Other specified disorders of bone density and structure, unspecified site; M81.0 Age-related osteoporosis without current pathological fracture; Z79.4 Long term (current) use of insulin; Z79.84 Long term (current) use of oral hypoglycemic drugs
CPT/HCPCS: 72192; 73502; 99284; A9270

== ENCOUNTER 2022-05-29 14:07 | Outpatient (CLI) | payer OTHER, SELFPAY ==
[2022-05-29 14:26] LABS: Basophils Absolute Auto 0.1 K/mm3 (0.0-0.1); Basophils Percent Auto 0.5 % (0.2-1.2); Eosinophils Absolute Auto 0.4 K/mm3 (0-0.3); Eosinophils Percent Auto 3.7 % (0-4.4); Hematocrit 38.9 % (37.0-47.0); Hemoglobin 11.5 g/dL (12.0-15.0); Immature Granulocyte Absolute 0.03 K/mm3 (0.00-0.031); Immature Granulocyte Percent A 0.3 % (0-0.5); Lymphocytes Absolute Auto 2.81 K/mm3 (0.9-3.2); Mean Corpuscular HGB Conc 29.6 g/dl (32-36); Mean Platelet Volume 8.7 fl (7.4-10.4); Monocytes Absolute Auto 0.7 K/mm3 (0.1-0.6); Monocytes Percent Auto 6.9 % (2.6-8.5); Neutrophils Absolute Auto 6.4 K/mm3 (1.3-6.7); Neutrophils Percent Auto 61.6 % (45.5-73.1); Platelet Count Result 407 k/mm3 (150-375); Red Blood Count 4.42 M/mm3 (4.2-5.4); Red Cell Distribution Width 15.5 % (11.5-14.5); White Blood Count 10.4 K/mm3 (4.5-10.0)
[2022-05-29 14:28] LABS: Platelet Estimate Increased (Adequate); Schistocytes None Seen (NORMAL)
[2022-05-29 14:29] LABS: Hypochromasia 1+ (NORMAL)
[2022-05-29 14:32] LABS: Blood Urea Nitrogen 12 mg/dL (8-26); Carbon Dioxide 24 mmol/L (22-30); Chloride 103 mmol/L (98-109); Estimated Glomerular Filt Rate 48; Glucose 263 mg/dL (70-105); Ionized Calcium (POC) 1.11 mmol/L (1.11-1.31); Sodium 138 mmol/L (138-146)
[2022-05-29 16:22] LABS: Alanine Aminotransferase 18 U/L (6-35); Albumin Level 3.9 g/dL (3.5-5.1); Alkaline Phosphatase 130 U/L (38-126); Anion Gap 9 mmol/L (8-16); Aspartate Amino Transferase 25 U/L (14-36); Bilirubin,Total 0.4 mg/dL (0.2-1.3); Blood Urea Nitrogen 12 mg/dL (7-17); Carbon Dioxide 23 mmol/L (22-30); Chloride 102 mmol/L (98-107); Estimated Glomerular Filt Rate 54; Glucose 252 mg/dL (65-110); Sodium 134 mmol/L (137-145)
== END 2022-05-29 14:08 | disposition home or self-care (01) ==
PROVIDERS: PCP Family Medicine; Visit Provider Internal Medicine Hematology & Oncology
DX: C50.912 Malignant neoplasm of unspecified site of left female breast (principal)
CPT/HCPCS: 36415; 80047; 80053; 85025

== ENCOUNTER → 2022-08-05 10:56 | Outpatient (CLI) | payer OTHER, SELFPAY ==
--- NOTE | ~2022-08-05 | MR_ITS ---
EXAMINATION: MR pelvis wo/w con DATE: 08/05/2022 12:29 INDICATION: Left iliac wing fracture. Left pelvic pain. TECHNIQUE: Magnetic resonance imaging (MRI) of the pelvis was performed without and with 11 mL MultiH ance intravenous contrast. COMPARISON: CT pelvis 05/25/2022, radiographs 07/30/2022 FINDINGS: There is dextrocurvature of lumbar spine. There is a nondisplaced fracture of left iliac wi ng extending into the sacroiliac joint with edema-like marrow signal intensity. There is a nondisplac ed fracture of left sacral ala with edema-like marrow signal intensity. There is severe osteoarthriti s of the sacroiliac joints. 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 Th ere is a partial tear of right gluteus minimus tendon. There is moderate right trochanteric bursitis. There are partial tears of the hamstring origins bilaterally. There is severe lumbar spondylosis. IMPRESSION: 1. Fractures of left ilium and left sacral ala in near-anatomic alignment. No evidence of malignancy. Reviewed, dictated and finalized at location A. IMPRESSION: 1. Fractures of left ilium and left sacral ala in near-anatomic alignment. No e vidence of malignancy.
== END ==
PROVIDERS: PCP Family Medicine; Visit Provider Orthopaedic Surgery
DX: S32.302A Unspecified fracture of left ilium, initial encounter for closed fracture (principal); T14.90XA Injury, unspecified, initial encounter
CPT/HCPCS: 72197; A9577

== ENCOUNTER 2022-12-04 14:56 | Outpatient (CLI) | payer OTHER, SELFPAY ==
[2022-12-04 15:09] LABS: Basophils Percent Auto 0.5 % (0.2-1.2); Eosinophils Absolute Auto 0.4 K/mm3 (0-0.3); Eosinophils Percent Auto 5.9 % (0-4.4); Hematocrit 37.7 % (37.0-47.0); Hemoglobin 11.3 g/dL (12.0-15.0); Immature Granulocyte Absolute 0.02 K/mm3 (0.00-0.031); Immature Granulocyte Percent A 0.3 % (0-0.5); Lymphocytes Absolute Auto 2.19 K/mm3 (0.9-3.2); Lymphocytes Percent Auto 37.2 % (18.3-44.2); Mean Corpuscular Hemoglobin 25.2 pg (26-34); Monocytes Absolute Auto 0.6 K/mm3 (0.1-0.6); Monocytes Percent Auto 10.7 % (2.6-8.5); Neutrophils Absolute Auto 2.7 K/mm3 (1.3-6.7); Neutrophils Percent Auto 45.4 % (45.5-73.1); Platelet Count Result 287 k/mm3 (150-375); Red Blood Count 4.49 M/mm3 (4.2-5.4); Red Cell Distribution Width 14.6 % (11.5-14.5); White Blood Count 5.9 K/mm3 (4.5-10.0)
[2022-12-04 15:13] LABS: Blood Urea Nitrogen 8 mg/dL (8-26); Carbon Dioxide 26 mmol/L (22-30); Chloride 102 mmol/L (98-109); Estimated Glomerular Filt Rate 60; Glucose 147 mg/dL (70-105); Ionized Calcium (POC) 1.23 mmol/L (1.11-1.31); Potassium 3.6 mmol/L (3.5-4.9); Sodium 143 mmol/L (138-146)
[2022-12-04 16:25] LABS: Alanine Aminotransferase 16 U/L (6-35); Alkaline Phosphatase 69 U/L (38-126); Anion Gap 6 mmol/L (8-16); Aspartate Amino Transferase 28 U/L (14-36); Bilirubin,Total 0.2 mg/dL (0.2-1.3); Blood Urea Nitrogen 10 mg/dL (7-17); Calcium 9.6 mg/dL (8.4-10.2); Carbon Dioxide 28 mmol/L (22-30); Chloride 103 mmol/L (98-107); Estimated Glomerular Filt Rate > 60; Glucose 142 mg/dL (65-110); Potassium 3.6 mmol/L (3.4-5.0); Sodium 137 mmol/L (137-145)
== END 2022-12-04 14:57 | disposition home or self-care (01) ==
LOC: ANHLAB 14:57
PROVIDERS: PCP Family Medicine; Visit Provider Internal Medicine Hematology & Oncology
DX: C50.912 Malignant neoplasm of unspecified site of left female breast (principal)
CPT/HCPCS: 36415; 80047; 80053; 85025

== ENCOUNTER 2023-02-19 16:02 | Outpatient (CLI) | payer OTHER, SELFPAY ==
--- NOTE | ~2023-02-19 | MM_ITS ---
EXAMINATION: MM screening leilani BI w orlin HISTORY: Screening mammogram TECHNIQUE: Craniocaudal and mediolateral oblique 3-D tomosynthesis images were obtained and synthetic 2-D images were generated. CAD analysis was submitted and interpreted. COMPARISON: 09/10/2021 diagnostic bilateral mammogram 08/14/2021, 08/20/2020, 08/17/2019 bilateral screening mammogram examinations BREAST PARENCHYMAL COMPOSITION: The breasts are heterogeneously dense, which may obscure small masses . FINDINGS: History of prior benign right breast biopsy. 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 Numerous scattered bilateral benign-appearing calcifications.. There is no evidence of suspicious mas s, calcification, or architectural distortion to suggest malignancy in either breast. There has been no suspicious interval change. IMPRESSION: 1. Status post left partial mastectomy; history of DCIS. No mammographic evidence of malignancy. 2. Recommend routine screening mammography in one year. BI-RADS Category 2: Benign finding(s). Reviewed, dictated and finalized at location A. IMPRESSION: 1. Status post left partial mastectomy; history of DCIS. No mammographic eviden ce of malignancy. 2. Recommend routine screening mammography in one year. BI-RADS Category 2: Benign finding(s).
== END 2023-02-19 16:03 | disposition home or self-care (01) ==
PROVIDERS: PCP Family Medicine; Visit Provider Internal Medicine Hematology & Oncology
DX: Z12.31 Encounter for screening mammogram for malignant neoplasm of breast (principal); M85.89 Other specified disorders of bone density and structure, multiple sites; Z90.12 Acquired absence of left breast and nipple; Z86.000 Personal history of in-situ neoplasm of breast
CPT/HCPCS: 77063; 77067

== ENCOUNTER 2023-04-22 14:40 | Outpatient (CLI) | payer OTHER, SELFPAY ==
--- NOTE | ~2023-04-22 | DEXA_ITS ---
Bone Density Report Name: MAYCO VAUGHN Age: 77 Sex: Female Ethnicity: White Date of : 1945 Indication: osteopenia; height loss; prior fracture; cancer; Referring Provider: SHA MAHONEY Study: Bone densitometry was performed. Exam Date: April 22, 2023 Accession number: [id number] Bone Density: Region BMD T-score Z-score Classification AP Spine(L1-L4) 0.960 -0.8 1.9 Normal Femoral Neck (Left) 0.526 -2.9 -0.6 Osteoporosis Total Hip (Left) 0.672 -2.2 -0.2 Osteopenia Femoral Neck (Right) 0.571 -2.5 -0.2 Osteoporosis Total Hip (Right) 0.657 -2.3 -0.3 Osteopenia Total Hip Mean 0.665 -2.3 -0.3 Osteopenia World Health Organization criteria for BMD impression classify patients as: Normal (T-score at or above -1.0), Osteopenia (T-score between -1.0 and -2.5), or Osteoporosis (T-score at or below -2.5). 10-year Fracture Risk: FRAX not reported because: Some T-score for Spine Total or Hip Total or Femoral Neck at or below -2.5 Prior hip or vertebral fracture Previous Exams: Region Exam Age BMD T-score BMD Change BMD Change Date g/cm2 vs Baseline vs Previous AP Spine (L1-L4) 04/22/2023 77 0.960 -0.8 0.048 (5.2%)# 0.048 (5.2%)# 01/17/2020 74 0.913 -1.2 Total Hip(Left) 04/22/2023 77 0.672 -2.2 -0.121 (-15.2% -0.121 (-15.2% 01/17/2020 74 0.793 -1.2 Total Hip(Right) 04/22/2023 77 0.657 -2.3 -0.161 (-19.6% -0.161 (-19.6% 01/17/2020 74 0.818 -1.0 *Denotes significance at 95% confidence level, LSC for AP Spine = 0.022 g/cm2, LSC for Total Hip = 0.027 g/cm2 # Denotes dissimilar scan types or analysis methods Clinical Information Provided by Patient: Have had a previous hip or vertebral fracture Has had a low trauma fracture Has used the following medications: Vitamin D, Calcium Has the following medical conditions: Cancer Patient maximum height was 60 Menopause Age: 43 No regular weight bearing exercise Onset of menses at age 12 Number of children 3 Impression: The patient has established osteoporosis, based on the Left Femoral Neck T-score and the existence of a prior fracture. The patient has risk factors, including: previous fracture. No significant bone loss was observed. Discussion: HIGH RISK OF FRACTURE. BONE DENSITY IS UNDESIRABLY LOW AT ONE OR MORE SKELETAL SITES, CONSISTENT WITH POSTMENOPAUSAL OSTEOPOROSIS. This patient's lowest T-score, in a patient who has previously fractured, meets the World Health Organi
== END 2023-04-22 14:41 | disposition home or self-care (01) ==
LOC: ANHIMG 14:41
PROVIDERS: PCP Family Medicine; Visit Provider Internal Medicine Hematology & Oncology
DX: M85.89 Other specified disorders of bone density and structure, multiple sites (principal); M81.0 Age-related osteoporosis without current pathological fracture; Z12.31 Encounter for screening mammogram for malignant neoplasm of breast
CPT/HCPCS: 77080

== ENCOUNTER 2023-06-04 15:18 | Outpatient (CLI) | payer OTHER, SELFPAY ==
[2023-06-04 15:31] LABS: Basophils Percent Auto 0.3 % (0.2-1.2); Eosinophils Absolute Auto 0.2 K/mm3 (0-0.3); Eosinophils Percent Auto 3.9 % (0-4.4); Hemoglobin 14.8 g/dL (12.0-15.0); Immature Granulocyte Absolute 0.02 K/mm3 (0.00-0.031); Immature Granulocyte Percent A 0.3 % (0-0.5); Lymphocytes Absolute Auto 2.22 K/mm3 (0.9-3.2); Lymphocytes Percent Auto 35.9 % (18.3-44.2); Mean Corpuscular HGB Conc 32.9 g/dl (32-36); Mean Corpuscular Hemoglobin 31.6 pg (26-34); Mean Corpuscular Volume 95.9 fl (80-100); Mean Platelet Volume 9.3 fl (7.4-10.4); Monocytes Absolute Auto 0.6 K/mm3 (0.1-0.6); Monocytes Percent Auto 9.4 % (2.6-8.5); Neutrophils Absolute Auto 3.1 K/mm3 (1.3-6.7); Neutrophils Percent Auto 50.2 % (45.5-73.1); Platelet Count Result 186 k/mm3 (150-375); Red Blood Count 4.69 M/mm3 (4.2-5.4); Red Cell Distribution Width 12.9 % (11.5-14.5); White Blood Count 6.2 K/mm3 (4.5-10.0)
[2023-06-04 15:35] LABS: Blood Urea Nitrogen 14 mg/dL (8-26); Carbon Dioxide 27 mmol/L (22-30); Chloride 103 mmol/L (98-109); Estimated Glomerular Filt Rate > 60; Glucose 105 mg/dL (70-105); Ionized Calcium (POC) 1.19 mmol/L (1.11-1.31); Potassium 3.9 mmol/L (3.5-4.9); Sodium 143 mmol/L (138-146)
[2023-06-04 17:29] LABS: Alanine Aminotransferase 15 U/L (6-35); Albumin Level 4.1 g/dL (3.5-5.1); Alkaline Phosphatase 74 U/L (38-126); Anion Gap 9 mmol/L (8-16); Aspartate Amino Transferase 29 U/L (14-36); Bilirubin,Total 0.4 mg/dL (0.2-1.3); Blood Urea Nitrogen 16 mg/dL (7-17); Carbon Dioxide 26 mmol/L (22-30); Chloride 105 mmol/L (98-107); Estimated Glomerular Filt Rate > 60; Glucose 107 mg/dL (65-110); Sodium 140 mmol/L (137-145)
== END 2023-06-04 15:19 | disposition home or self-care (01) ==
LOC: ANHLAB 15:19
PROVIDERS: PCP Family Medicine; Visit Provider Internal Medicine Hematology & Oncology
DX: C50.912 Malignant neoplasm of unspecified site of left female breast (principal)
CPT/HCPCS: 36415; 80047; 80053; 85025

== ENCOUNTER 2024-02-22 14:03 | Outpatient (CLI) | payer OTHER, SELFPAY ==
--- NOTE | ~2024-02-22 | MM_ITS ---
EXAMINATION: MM screening leilani BI w orlin HISTORY: Screening mammogram, family history of breast cancer in her mother. TECHNIQUE: Craniocaudal and mediolateral oblique 3-D tomosynthesis images were obtained and synthetic 2-D images were generated. CAD analysis was submitted and interpreted. COMPARISON: 02/19/2023, 08/22/2021, 08/20/2020 BREAST PARENCHYMAL COMPOSITION:Dense: The breasts are heterogeneously dense, which may obscure small masses. FINDINGS: Extensive bilateral benign calcifications are present. No suspicious mass, calcification, o r architectural distortion are identified in either breast to suggest malignancy. There has been no s uspicious interval change. IMPRESSION: No mammographic evidence of malignancy. Recommend routine screening mammography in one year. BI-RADS Category 2: Benign finding(s). Reviewed, dictated and finalized at location .
== END 2024-02-22 14:04 | disposition home or self-care (01) ==
LOC: ANHIMG 14:06
PROVIDERS: PCP Family Medicine; Visit Provider Internal Medicine Hematology & Oncology
DX: Z12.31 Encounter for screening mammogram for malignant neoplasm of breast (principal)
CPT/HCPCS: 77063; 77067

== ENCOUNTER 2024-05-17 13:21 | Outpatient (CLI) | payer OTHER, SELFPAY ==
[2024-05-17 13:44] LABS: Basophils Percent Auto 0.5 % (0.2-1.2); Eosinophils Absolute Auto 0.3 K/mm3 (0-0.3); Hematocrit 42.2 % (37.0-47.0); Hemoglobin 13.9 g/dL (12.0-15.0); Immature Granulocyte Absolute 0.01 K/mm3 (0.00-0.031); Immature Granulocyte Percent A 0.2 % (0-0.5); Lymphocytes Absolute Auto 1.83 K/mm3 (0.9-3.2); Lymphocytes Percent Auto 29.6 % (18.3-44.2); Mean Corpuscular HGB Conc 32.9 g/dl (32-36); Mean Corpuscular Hemoglobin 31.6 pg (26-34); Mean Corpuscular Volume 95.9 fl (80-100); Mean Platelet Volume 9.4 fl (7.4-10.4); Monocytes Absolute Auto 0.6 K/mm3 (0.1-0.6); Monocytes Percent Auto 9.2 % (2.6-8.5); Neutrophils Absolute Auto 3.5 K/mm3 (1.3-6.7); Neutrophils Percent Auto 56.5 % (45.5-73.1); Platelet Count Result 189 k/mm3 (150-375); Red Cell Distribution Width 12.8 % (11.5-14.5); White Blood Count 6.2 K/mm3 (4.5-10.0)
[2024-05-17 16:33] LABS: Alanine Aminotransferase 11 U/L (6-35); Albumin Level 4.1 g/dL (3.5-5.1); Alkaline Phosphatase 56 U/L (38-126); Anion Gap 10 mmol/L (4-12); Aspartate Amino Transferase 19 U/L (14-36); Bilirubin,Total 0.4 mg/dL (0.2-1.3); Blood Urea Nitrogen 16 mg/dL (7-17); Calcium 9.8 mg/dL (8.4-10.2); Carbon Dioxide 26 mmol/L (22-30); Chloride 102 mmol/L (98-107); Estimated Glomerular Filt Rate > 60; Glucose 122 mg/dL (65-110); Potassium 3.8 mmol/L (3.4-5.0); Sodium 138 mmol/L (137-145)
[2024-05-17 16:47] LABS: Immunoglobulin A 222 mg/dL (70-400); Immunoglobulin G 433 mg/dL (700-1600); Immunoglobulin M 55 mg/dL (40-230)
[2024-05-18 08:27] LABS: Protein, Total 6.4 g/dL (6.1-8.1)
[2024-05-19 10:03] LABS: CA 15-3 18 U/mL (<32)
[2024-05-19 11:47] LABS: Kappa\\Lambda Light Chains 1.21 (0.26-1.65); Lambda Light Chain 13.2 mg/L (5.7-26.3)
== END 2024-05-17 13:22 | disposition home or self-care (01) ==
LOC: ANHLAB 13:29
PROVIDERS: PCP Family Medicine; Visit Provider Internal Medicine Hematology & Oncology
DX: C50.912 Malignant neoplasm of unspecified site of left female breast (principal); D47.2 Monoclonal gammopathy
CPT/HCPCS: 36415; 80053; 82784; 83883; 84155; 84165; 85025; 86300

== ENCOUNTER 2025-02-22 13:42 | Outpatient (CLI) | payer OTHER, SELFPAY ==
--- NOTE | ~2025-02-22 | MM_ITS ---
EXAMINATION: MM screening leilani BI w orlin HISTORY: Screening TECHNIQUE: Craniocaudal and mediolateral oblique 3-D tomosynthesis images were obtained and synthetic 2-D images were generated. CAD analysis was submitted and interpreted. COMPARISON: Comparison to multiple prior studies sequentially, with oldest reviewed study dated 08/17/2019. BREAST PARENCHYMAL COMPOSITION: Dense: The breasts are heterogeneously dense, which may obscure small masses FINDINGS: There is a developing asymmetry in the outer aspect of the right breast at approximately 9:00 position containing punctate calcifications. Left breast is stable without evidence for malignancy. IMPRESSION: 1. Developing right breast asymmetry at approximately 9:00, middle-posterior depth. 2. Additional mammographic views and possible breast ultrasound are recommended. BI-RADS Category 0: Incomplete: Needs additional imaging evaluation. Reviewed, dictated and finalized at location B. IMPRESSION: 1. Developing right breast asymmetry at approximately 9:00, middle-posterior de pth. 2. Additional mammographic views and possible breast ultrasound are recommended . BI-RADS Category 0: Incomplete: Needs additional imaging evaluation.
--- OUTSIDE RECORDS SUMMARY | 2025-02-22 15:14 | XMS_ITS ---
Author Organization [facility] Address [address] [place] [address] Care Team Providers Care Funder Name Role Phone Roxann Coto MD Primary Care Provider Active Problems Problem Noted Date Diagnosed Date Osteoporosis 07/10/2023 Benign hypertension 06/26/2017 Other hyperlipidemia 06/26/2017 Ductal carcinoma in situ (DCIS) of left breast 0 06/26/2017 Type 2 diabetes mellitus 06/26/2017 Current Treatment and Therapy Plans No current plan information found. Other Current Plans Zoledronic Acid (Reclast) Infusion* Plan Start Date:08/12/2024 Plan Provider:Yanely Palumbo MD Linked Problems Osteoporosis, unspecified os teoporosis type, unspecified pathological fracture presence Treatment Medications No medications scheduled. Past Treatment and Therapy Plans
--- OUTSIDE RECORDS SUMMARY | 2025-02-22 15:14 | XMS_ITS | Encounter Summary ---
Author Organization [facility] Address [address] [place] [address] Care Team Providers Care Inspector Elevators Name Role Phone Talha Mack MD Primary Care Provider Encounter Details Date Type Department Care Team (Late Contact Info) Description 06/18/2017 Chart Note [facility] Radiation Therapy [address] [place] [address] [place] [address] [place] [address] Social History Tobacco Use Types Packs/Day Years Used Date Smoking Tobacco: Never Assessed Comments Unknown Sex and Gender Information Value Date Recorded Sex Assigned at Not on file Legal Sex Female 3:13 AM SYSTEMS SUPPORT SPECIALIST Gender Identity Not on file Sexual Orientation Not on file documented as of this encounter Plan of Treatment Upcoming Encounters Date Type Department Care Team (Late Contact Info) Description 05/29/2025 3:30 PM SYSTEMS SUPPORT SPECIALIST Office Visit [facility] Oncology and Hematology - Robert [address] [facility] [address] [place] [address] Tommy Angelo MD [address] [facility] [address] [place] [address] documented as of this encounter Visit Diagnoses Not on filedocumented in this encounter Care Teams Inspector Elevators Relationship Specialty Start Date End Date Talha Mack MD [address] [facility] [address] [place] [address] PCP - General Family Practice 05/26/24 documented as of this encounter
--- OUTSIDE RECORDS SUMMARY | 2025-02-22 15:14 | XMS_ITS | Clinical Summary ---
Author Organization [facility] Address [address] [place] [address] Care Team Providers Care Steam Flattener Name Role Phone Roxann Coto MD Primary Care Provider Allergies No known active allergies Medications acetaminophen (TYLENOL) 500 mg tablet Take 650 mg by mouth every 6 (six) hours as needed Active atorvastatin (LIPITOR) 10 mg tablet Take 1 tablet (10 mg total) by mouth daily Active blood glucose diagnostic (Contour Next Test Strips) strip 01/28/2019 Active blood sugar diagnostic, disc (Breeze 2 Test Strips) strip 11/25/2017 Active carvediloL (COREG) 12.5 mg tablet TAKE 1 TABLET BY MOUTH EVERY 12 HOURS WITH FOOD Active diclofenac DR (VOLTAREN) 75 mg EC tablet Take 1 tablet (75 mg total) by mouth daily Active empagliflozin (Jardiance) 10 mg tablet 1 tablet (10 mg total) daily 01/17/2020 Active Jardiance 25 mg tablet Take 1 tablet (25 mg total) by mouth daily 06/05/2023 Active glucosamine-cho ndroitin 500-400 mg capsule Take 1 capsule by mouth daily Active insulin glargine (LANTUS) 100 unit/mL (3 mL) pen for injection Inject 16 Units under the skin 10/27/2021 Active Microlet Lancet misc DIRECTED TO CHECK GLUCOSE DAILY Active losartan (COZAAR) 100 mg tablet Take 1 tablet (100 mg total) by mouth daily Active memantine (NAMENDA) 10 mg tablet Take 1 tablet (10 mg total) by mouth 2 (two) times a day 05/26/2023 Active metFORMIN (GLUCOPHAGE) 1,000 mg tablet Take 1 tablet (1,000 mg total) by mouth 2 (two) times a day Active multivitamin tablet Take 1 tablet by mouth daily Active Unifine Pentips 31 gauge x 5/16 needle USE DIRECTED TO INJECT INSULIN DAILY Active triamcinolone (KENALOG) 0.1 % cream 01/04/2019 Active venlafaxine XR (EFFEXOR-XR) 75 mg 24 hr capsule Take by mouth daily Active Active Problems Problem Noted Date Diagnosed Date Osteoporosis 07/10/2023 Benign hypertension 06/26/2017 Other hyperlipidemia 06/26/2017 Ductal carcinoma in situ (DCIS) of left breast 0 06/26/2017 Type 2 diabetes mellitus 06/26/2017 Social History Tobacco Use Types Packs/Day Years Used Date Smoking Tobacco: Never Smokeless Tobacco: Never Tobacco Cessation:Counseling Given: No Comments Unknown Sex and Gender Information Value Date Recorded Sex Assigned at Not on file Legal Sex Female 6:44 PM COMPUTER SPECIALIST Gender Identity Not on file Sexual Orientation Not on file Obstetrics History Last Filed Vital Signs Vital Sign Reading Time Taken Comments Blood Pressure 138/78 08/12/2024 3:35 PM CDT Pulse 84 08/12/2024 3:35 PM CDT Temperature 36.6 C (97.8 F) 08/12/2024 3:35 PM CDT Respiratory Rate 16 08/12/2024 3:35 PM CDT Oxygen Saturation 96% 08/12/2024 3:35 PM CDT Inhaled Oxygen Concentration - - Weight 55.2 kg (121 lb 12.8 oz) 07/15/2024 1:33 PM CDT Height 143.8 cm (4' 8.6) 07/15/2024 1:33 PM CDT Body Mass Index 26.73 07/15/2024 1:33 PM CDT Plan of Treatment Health Maintenance Due Date Last Done Comments Albumin Creatinine Ratio, Urine 1945 Depression Screening 1945 Fall Risk Assessment 1945 Hemoglobin A1C 1945 Dilated Eye Exam 1945 Foot Exam 1945 Lipid Panel 1945 DTaP/Tdap/Td Vaccine (1 - Tdap) 1954 Hepatitis B Screening 1961 Pneumococcal vaccine 65+ (1 of 2 - PCV) 1962 Well Visit 65+ 2008 Zoster Vaccine (2 of 2) 05/08/2023 03/13/2023 Covid-19 Vaccine (5 - 2024-2 6 season) 2024 02/04/2023, 02/23/2021, 07/10/2020, Additional history exists Influenza Vaccine (#1) 2024 , 03/27/2022, 01/21/2021, Additional history exists eGFR 07/15/2025 07/15/2024, 06/12/2023 Osteoporosis Screening-Bone Density Scan 07/15/2026 07/15/2024, 06/12/2023 Procedures Procedure Name Priority Date/Time Associated Diagnosis Comments EGFR Routine 07/15/2024 2:36 PM CDT Osteoporosis, unspecified osteoporosis type, unspecified pathological fracture presence DEXA TBS AXIAL SKELETON BONE DENSITY 1 OR MORE SITES Schedule Routine, Read Routine (OP Routine) 07/15/2024 1:40 PM CDT Osteoporosis without current pathological fracture, unspecified osteoporosis type from Last 3 Months or Most Recently Relevant to Health Maintenance Results * (ABNORMAL) eGFR (07/15/2024 2:36 PM CDT) eGFR 54(L) >=60 mL/min/1. 73 m2 Comment: Interpretive Data Reference Interval Normal >/= 90 mL/min/1.73m2 Mildly decreased* 60 - 89 mL/min/1.73m2 Mildly to moderately decreased 45 - 59 mL/min/1.73m2 Moderately to severely decreased 30 - 44 mL/min/1.73m2 Severely decreased 15 - 29 mL/min/1.73m2 Kidney Failure < 15 mL/min/1.73m2 *Relative to young adult level Estimated glomerular filtration rate is determined by the 2020 CKD-EPI equation recommended by the National Kidney Foundation (A Unifying Approach to GFR Estimation: Recommendations of the NKF-ASK Task Force on Reassessing the Inclusion of Race in Diagnosing Kidney Disease, JASN 2020). The CKD-EPI equation should not be used for patients with unstable renal function and has not been validated in children and those over 70. Current interpretive data was last reviewed 2021. Blood 07/15/2024 2:36 PM CDT 07/15/2024 6:47 PM CDT us Yanely Palumbo MD LAB BLOOD ORDERABLES Final Result [facility] Department [place] [address] * Dexa TBS Axial Skeleton Bone Density 1 or more sites (07/15/2024 1:40 PM CDT) Anatomical Region Laterality Modality Wrist, Body N/A Radiographic Riana ging Narrative 07/15/2024 3:43 PM CDT Patient Name: Cammy Kilpatrick Date of : 1945 Date of scan: 07/15/2024 Bone mineral density was performed on a [employer] Discovery Densitometer. Based on machine cross-calibration and precision studies the least significant changes of this densitometer is 0.024 g/cm2 at the spine, 0.020 g/cm2 at the total proximal femur, and 0.014g/cm2 at the forearm. HISTORY: This is a 79 y.o. postmenopausal female with a history of breast cancer and osteoporosis. She reports that she has never smoked. She has never used smokeless tobacco. Currently on treatment with calcium and vitamin D, previously treated with ibandronate (Boniva) and tamoxifen, and current complaint of back pain and leg pain. INDICATIONS: Menopause status, treatment monitoring, history of prior hip fracture, vitamin D deficiency, and history of osteoporosis. FINDINGS: BONE MINERAL DENSITY OF THE LUMBAR SPINE Bone Mineral Density (BMD) of the lumbar spine was measured from L1-L4 and the average density was calculated to be 1.047 gm/cm2. This corresponds to a T-score (standard deviations from the mean of young adults) of 0.0. When compared to the previous study of 06/12/2023 there has been a 0.076 gm/cm (7.8%) increase in bone density that is considered significant. BONE MINERAL DENSITY OF THE PROXIMAL FEMUR Bone Mineral Density (BMD) of the right hip total was found to be 0.715 gm/cm2. This corresponds to a T-score standard deviations from the mean of young adults of -1.9. Femoral neck is 0.654 gm/cm2 with a T-score (standard deviations from the mean of young adults) of -1.8. When compared to the previous study of 06/12/2023 there has been no significant changes in bone density. BONE MINERAL DENSITY OF THE FOREARM Bone Mineral density (BMD) of the right proximal 1/3 of the radius measures 0.576 gm/cm2. This corresponds to a T-score (standard deviations from the mean of young adults) of -2.0. When compared to the previous study of 06/12/2023 there has been no significant changes in bone density. A forearm bone density study was performed in addition to the routine study due to department forearm protocol. SUMMARY: Bone mineral density shows evidence of low bone mass at the proximal femur and forearm and moderately increased fracture risk (Osteopenia). There has been a significant increase in bone density since previous measurement. The lumbar spine Trabecular Bone Score is 1.338 which suggests normal bone microarchitecture, compared to the general population. Final decisions regarding diagnostic or therapeutic recommendations should include BMD, TBS, additional clinical risk factors as well the clinical context of the patient. Please see attached TBS results for further details. ADDITIONAL COMMENTS: Postmenopausal Women and Men Over 50: Diagnostic criteria: Osteoporosis: BMD at or below -2.5 T-score; Osteopenia (low bone mass): BMD between -1.0 and -2.5 T-score. If the patient has a history of a fragility fracture, a fracture that occurred with trauma equivalent to a fall from a standing position or less, then the diagnosis is osteoporosis regardless of bone density. The history and data sections of the bone mineral density scan were prepared by Thea Miller(Pipo) ROMA who is accredited by the International Society of Clinical Densitometry. The overall patient assessment and scan interpretation were performed by Yanely Palumbo M.D. who is certified by the International Society of Clinical Densitometry. [id number] Yanely Palumbo MD [facility] [place]ED[place] Final R esult from Last 3 Months or Most Recently Relevant to Health Maintenance [place] [address] [employer] ADVANTAGE CHOICE PPO [employer] ADVANTAGE CHOICE PPO Care Teams Steam Flattener Relationship Specialty Start Date End Date Roxann Coto MD [address] [place] [address] PCP - General Family Medicine 06/06/23
--- OUTSIDE RECORDS SUMMARY | 2025-02-22 15:14 | XMS_ITS | Clinical Summary ---
Author Organization [facility] Address [address] [address] Care Team Providers Care Windows Software Engineer Name Role Phone Talha Mack MD Primary Care Provider [phone] Allergies No known active allergies Medications metFORMIN (GLUCOPHAGE) 1,000 mg tablet Take 1,000 mg by mouth 2 times daily with meals. Active losartan (COZAAR) 100 mg tablet Take 100 mg by mouth daily. Active glipiZIDE (GLUCOTROL) 10 mg tablet Take 10 mg by mouth 2 times daily with meals. Active diclofenac sodium (VOLTAREN) 75 mg Tablet, Delayed Release (E.C.) Take 75 mg by mouth 2 times daily. Active atorvastatin (LIPITOR) 10 mg tablet Take 10 mg by mouth late in the day. Active multivitamin (DAILY-PACHECO) tablet Take 1 Tablet by mouth daily. Active glucosamine-ch ondroitin (ARTHX DS) 500-400 mg Capsule Take 1 Capsule by mouth daily. Active loratadine-pse udoephedrine (CLARITIN-D) 5-120 mg Extended Release 12 hour tablet Take 1 Tablet by mouth 2 times daily. Active acetaminophen (TYLENOL) 500 mg tablet Take 500 mg by mouth every 6 hours as needed. Active ASCENSIA BREEZE 2 Strip 8 Active MICROLET LANCET 8 Active CONTOUR NEXT TEST STRIPS Strip 9 Active triamcinolone acetonide (KENALOG) 0.1 % Cream 9 Active Jardiance 10 mg tablet [address] Hackett changed to Every other day 0 Active BD Ultra-Fine Short Pen Needle 31 gauge x 5/16 Needle 2 Active Lantus Solostar U-100 Insulin 100 unit/mL (3 mL) solution for injection INJECT 14 UNITS SUBCUTANEOUSLY TWICE A DAY 2 Active ibandronate (BONIVA) 150 mg tablet TAKE 1 TABLET BY MOUTH MONTHLY 2 Active carvediloL (COREG) 3.125 mg tablet Take 12.5 mg by mouth 2 times daily. 2 Active tamoxifen (NOLVADEX) 20 mg tabletIndicati ons:Ductal carcinoma in situ (DCIS) of left breast TAKE 1 TABLET BY MOUTH EVERY DAY 90 Tablet 3 3 Active venlafaxine (EFFEXOR XR) 37.5 mg Extended Release 24 hour capsule TAKE 1 CAPSULE BY MOUTH EVERY DAY 90 Capsule 3 3 Active Additional Information Patient taking differently: 75 mg Oral DAILY, Reported on 12/04/2022 Active Problems Problem Noted Date Diagnosed Date Skin lesion of breast 02/18/2018 Estrogen receptor positive 08/12/2017 History of external beam radiation therapy 08/12 SERM use (selective estrogen receptor modulator) 08/12/2017 Type 2 diabetes mellitus 06/26/2017 Benign hypertension 06/26/2017 Other hyperlipidemia 06/26/2017 Ductal carcinoma in situ (DCIS) of left breast 0 06/26/2017 Encounters Date Type Department Care Team Description 12/27/2024 External Device Data [facility] ABSTRACTION Provider, Abstract 12/13/2024 External Device Data [facility] ABSTRACTION Provider, Abstract 12/06/2024 External Device Data [facility] ABSTRACTION Provider, Abstract from Last 3 Months Family History Medical History Relation Name Comments Heart Disease Father Breast Cancer Mother Cancer Mother Heart Disease Mother Relation Name Status Comments Brother Alive Father Mother Alive Social History Tobacco Use Types Packs/Day Years Used Date Smoking Tobacco: Former Cigarettes 0.5 1 1 987 - 1988 Smokeless Tobacco: Never Tobacco Cessation:Counseling Given: Not Answered Alcohol Use Standard Drinks/Week Comments Yes 0 (1 standard drink = 0.6 oz pur e alcohol) occassional Comments No Sex and Gender Information Value Date Recorded Sex Assigned at Not on file Legal Sex Female 3:13 AM SHOEBLACK Gender Identity Not on file Sexual Orientation Not on file Last Filed Vital Signs Vital Sign Reading Time Taken Comments Blood Pressure 153/78 05/26/2024 2:59 PM SHOEBLACK Pulse 75 05/26/2024 2:54 PM SHOEBLACK Temperature 36.2 C (97.2 F) 05/26/2024 2:54 PM SHOEBLACK Respiratory Rate 15 05/26/2024 2:54 PM SHOEBLACK Oxygen Saturation 94% 05/26/2024 2:54 PM SHOEBLACK Inhaled Oxygen Concentration - - Weight 55.5 kg (122 lb 6.4 oz) 05/26/2024 2:54 P M SHOEBLACK Height 149.9 cm (4' 11) 08/12/2023 2:40 PM CDT Body Mass Index 24.72 08/12/2023 2:40 PM CDT Plan of Treatment Upcoming Encounters Date Type Department Care Team (Late st Contact Info) Description 05/29/2025 3:30 PM SHOEBLACK Office Visit [facility] Oncology and Hematology - Robert [address] [facility] [address] [place] [address] Tommy Angelo MD [address] [facility] [place] [address] Health Maintenance Due Date Last Done Comments DIABETES ANNUAL FOOT EXAM 1961 DIABETES ANNUAL RETINAL EXAM 1961 DIABETES HBA1C Q 6 MONTHS 1961 DIABETES MICROALBUMIN ANNUAL SCREEN 1961 LDL CHOLESTEROL ANNUAL 1961 DTAP/TDAP/TD VACCINES (1 - Tdap) 1962 PNEUMOCOCCAL VACCINE 50+ YEA RS (1 of 2 - PCV) 1962 ZOSTER VACCINE (1 of 2) 1993 RSV VACCINE (60+ or ) (1 - 1-dose 75+ series) 2018 INFLUENZA VACCINE (#1) 2024 OSTEOPOROSIS SCREENING 06/12/2028 06/12/2023, 2023 Insurance [facility] Care Teams Windows Software Engineer Relationship Specialty Start Date End Date Talha Mack MD [address] [facility] [address] [place] [address] PCP - General Family Practice 05/26/24
== END 2025-02-22 13:43 | disposition home or self-care (01) ==
LOC: ANHFOHIMG 13:43
PROVIDERS: PCP Family Medicine; Visit Provider Internal Medicine Hematology & Oncology
DX: Z12.31 Encounter for screening mammogram for malignant neoplasm of breast (principal); R92.8 Other abnormal and inconclusive findings on diagnostic imaging of breast
CPT/HCPCS: 77063; 77067

== ENCOUNTER 2025-04-11 11:06 | Outpatient (CLI) | payer OTHER, SELFPAY ==
--- NOTE | ~2025-04-11 | MMUS_ITS ---
EXAMINATION: MM diagnostic leilani RT w orlin, US breast RT limited INDICATION: 79-year old female; BI-RADS 0, callback from screening to evaluate right breast finding COMPARISON: 02/22/2025 through 08/20/2020 TECHNIQUE: Digital breast tomosynthesis True lateral and spot compression CC and MLO views of the RIGHT breast were obtained with computer-aided detection to assist in interpretation of the study. FINDINGS: The breasts are heterogeneously dense, which may obscure small masses. The asymmetry of concern in the outer central right breast persists on spot compression views, however this finding is unchanged dating back to the mammogram of 09/10/2021. This finding is able considered benign. RIGHT BREAST ULTRASOUND FINDINGS: Targeted evaluation of the area of concern was completed. Dense breast tissue is identified. No suspicious solid or cystic mass seen. IMPRESSION: RIGHT breast asymmetry of concern is unchanged and considered benign. RECOMMENDATION: Annual screening mammography in 12 months. BI-RADS 2, BENIGN Reviewed, dictated and finalized at location A. GAGE COUNSELOR IMPRESSION: RIGHT breast asymmetry of concern is unchanged and considered benign. RECOMMENDATION: Annual screening mammography in 12 months. BI-RADS 2, BENIGN
--- OUTSIDE RECORDS SUMMARY | 2025-04-11 13:32 | XMS_ITS | Clinical Summary ---
Author Organization [facility] Address [address] [address] Care Team Providers Care Agricultural Production Engineer Name Role Phone Talha Mack MD Primary Care Provider [phone] Allergies No known active allergies Medications metFORMIN [...] Encounters Date Type Department Care Team Description 04/04/2025 External Device Data ST[facility] ABSTRACTION Provider, Abstract 03/21/2025 External Device Data [facility] ABSTRACTION Provider, Abstract 03/14/2025 External Device Data [facility] ABSTRACTION Provider, Abstract 02/23/2025 Orders Only [facility] Oncology and Hematology [place] [address] [address] [address] Tommy Angelo MD Abnormal mammogram of right breast (Primary Dx) from Last 3 Months Family History Medical History Relation Name Comments Heart Disease Father Breast Cancer Mother Cancer Mother Heart Disease Mother Relation Name Status Comments Brother Alive Father Mother Alive Social History Tobacco Use Types Packs/Day Years Used Date Smoking Tobacco: Former Cigarettes 0.5 1 1 987 - 1987 Smokeless Tobacco: Never Tobacco Cessation:Counseling Given: Not Answered Alcohol Use Standard Drinks/Week Comments Yes 0 (1 standard drink = 0.6 oz pur e alcohol) occassional Comments No Sex and Gender Information Value Date Recorded Sex Assigned at Not on file Legal Sex Female 3:13 AM COPY CENTER OPERATOR Gender Identity Not on file Sexual Orientation Not on file Last Filed Vital Signs Vital Sign Reading Time Taken Comments Blood Pressure 153/78 05/26/2024 2:59 PM COPY CENTER OPERATOR Pulse 75 05/26/2024 2:54 PM COPY CENTER OPERATOR Temperature 36.2 C (97.2 F) 05/26/2024 2:54 PM COPY CENTER OPERATOR Respiratory Rate 15 05/26/2024 2:54 PM COPY CENTER OPERATOR Oxygen Saturation 94% 05/26/2024 2:54 PM COPY CENTER OPERATOR Inhaled Oxygen Concentration - - Weight 55.5 kg (122 lb 6.4 oz) 05/26/2024 2:54 P M COPY CENTER OPERATOR Height 149.9 cm (4' 11) 08/12/2023 2:40 PM CDT Body Mass Index 24.72 08/12/2023 2:40 PM CDT Plan of Treatment Upcoming Encounters Date Type Department Care Team (Late st Contact Info) Description 05/29/2025 3:30 PM COPY CENTER OPERATOR Office Visit [facility] Oncology and Hematology [place] [address] [place] [address] [facility] [address] [place] [address] Tommy Angelo MD [address] [facility] [address] [place] [address] Health Maintenance Due Date Last [...] (#1) 2024 OSTEOPOROSIS SCREENING 06/12/2028 06/12/2023, 2023 Procedures Procedure Name Priority Date/Time Associated Diagnosis Comments MAMMO SCREENING BILAT Routine 02/22/2025 11:32 AM CDT from Last 3 Months Results * MAMMO SCREENING BILAT (02/22/2025 11:32 AM CDT) Anatomical Region Laterality Modality Breast Bilateral Mammography Tommy Angelo MD MAMMO ORDERABLES Final Result from Last 3 Months Insurance Care Teams Agricultural Production Engineer Relationship Specialty Start Date End Date Talha Mack MD [address] [facility] [address] [place] [id number] PCP - General Family Practice 05/26/24
--- OUTSIDE RECORDS SUMMARY | 2025-04-11 13:32 | XMS_ITS | Clinical Summary ---
Author Organization [facility] Address [address] [place] [id number] Care Team Providers Care Cook Helper Fruit Name Role Phone Roxann Coto MD Primary [...] on file Legal Sex Female 6:44 PM POLYGRAPH EXAMINER Gender Identity Not on file Sexual Orientation [...] of 2) 05/08/2023 03/13/2023 Covid-19 Vaccine (5 2024-2 6 season) 2024 02/04/2023, 02/23/2021, 07/10/2020, [...] BLOOD ORDERABLES Final Result [facility] Department [place] [address] * Dexa TBS Axial Skeleton Bone Density 1 or more sites (07/15/2024 1:40 PM CDT) Anatomical Region Laterality Modality Wrist, Body N/A Radiographic Riana ging Narrative 07/15/2024 3:43 PM CDT Patient Name: Cammy Kilpatrick Date of : 1945 Date of scan: 07/15/2024 Bone mineral density was performed on a [id number] Digital Discovery Densitometer. Based on machine cross-calibration and [...] by the International Society of Clinical Densitometry. [id number] Yanely Palumbo MD [facility] DXA PROCEDURES Final R esult from Last 3 Months or Most Recently Relevant to [place] [address] [place] [address] [employer] PPO [employer] AD[employer] CHO[employer] PPO Member Subscriber Plan / Payer (Ef fective 2024-Present) Name:[place] Cammy L Relation to Subscriber:Self Name:Cammy Kilpatrick Mima Payer ID:[id number] (NAIC) Type:MEDICARE RISK OTHER Address: [place] [id number] Care Teams Cook Helper Fruit Relationship Specialty Start Date End Date Roxann Coto MD [address] [place], [place] [id number] PCP - General Family Medicine 06/06/23
--- OUTSIDE RECORDS SUMMARY | 2025-04-11 13:32 | XMS_ITS | Encounter Summary ---
Author Organization [facility] Address [address] [place] [address] Care Team Providers Care Gauge Inspector Name Role Phone Talha Mack MD Primary Care Provider [phone] Encounter Details Date Type Department Care Team (Late Contact Info) Description 06/18/2017 Chart Note [facility] Radiation Therapy [address] [place] [address] [place] [address] [place] [address] Social History Tobacco Use Types Packs/Day Years Used Date Smoking Tobacco: Never Assessed Comments Unknown Sex and Gender Information Value Date Recorded Sex Assigned at Not on file Legal Sex Female 3:13 AM PROJECT ENGINEERING MANAGER Gender Identity Not on file Sexual Orientation Not on file documented as of this encounter Plan of Treatment Upcoming Encounters Date Type Department Care Team (Late st Contact Info) Description 05/29/2025 3:30 PM PROJECT ENGINEERING MANAGER Office Visit [facility] Oncology and Hematology - [place] [address] [facility] [address] [place] [address] Tommy Angelo MD [address] [facility] [address] [place] [address] documented as of this encounter Visit Diagnoses Not on filedocumented in this encounter Care Teams Gauge Inspector Relationship Specialty Start Date End Date Talha Mack MD [address] [facility] [address] [place] [address] PCP - General Family Practice 05/26/24 documented as of this encounter
--- OUTSIDE RECORDS SUMMARY | 2025-04-11 13:32 | XMS_ITS ---
Author Organization [facility] Address [address] [place] [address] Care Team Providers Care Fire Alarm Dispatcher Name Role Phone Roxann Coto MD Primary [...]
== END 2025-04-11 11:07 | disposition home or self-care (01) ==
LOC: ANHFOHIMG 11:08
PROVIDERS: PCP Family Medicine; Visit Provider Internal Medicine Hematology & Oncology
DX: R92.8 Other abnormal and inconclusive findings on diagnostic imaging of breast (principal)
CPT/HCPCS: 76642; 77061; 77065; G0279